=== PATIENT | female | born 1930 | race Caucasian/White ===

== ENCOUNTER 2017-12-14 16:18 | Emergency (ER) | payer OTHER, MEDICARE ==
[~2017-12-14] VITALS: Ht 172.7 cm; Wt 68.0 kg
[~2017-12-14 16:18] MED LIST: ALPRAZOLAM 0.0.25 M1 PO; ARICEPT 5 MG TAB5 MG PO; BENICAR; BONIVA150 MG PO; GLUCOPHAGE500 MG PO; HYDROCODONE-AP1 EAC6 PO; NOVOLOG100 UNIT/1 SUBQ; PREVISION; PROZAC 10 MG CA10 MG PO; PROZAC 20 MG20 M1 PO; SYNTHROID50 MCG PO; ZOCOR 20 MG TAB20 M1 PO
[2017-12-14] MEDS ORDERED: FLEXERIL PO (18:34)
[2017-12-14 19:10] VITALS: BP 147/63
== END 2017-12-14 19:12 | disposition home or self-care (01) ==
LOC: ER 16:18
DX: M54.9 Dorsalgia, unspecified (principal); E11.9 Type 2 diabetes mellitus without complications; E78.5 Hyperlipidemia, unspecified; F32.9 Major depressive disorder, single episode, unspecified; F41.9 Anxiety disorder, unspecified; F03.90 Unspecified dementia, unspecified severity, without behavioral disturbance, psychotic disturbance, mood disturbance, and anxiety; Z88.2 Allergy status to sulfonamides; Z88.1 Allergy status to other antibiotic agents; Z88.5 Allergy status to narcotic agent

== ENCOUNTER 2017-12-28 17:02 | Inpatient (IN) | payer OTHER, MEDICARE ==
[~2017-12-28] VITALS: Ht 172.7 cm; Wt 64.4 kg
--- NOTE | ~2017-12-28 | EEG ---
[facility] Jessica [place] [address] ELECTROENCEPHALOGRAM Name: MEISHA STILL Room #: 427-P [facility] IN M.R.#: [id number] Admission: 12/28/17 Attend Phys: Paty Mack Discharge: 01/04/18 Date of : [birth year] Report #: [id number] THIS REPORT FOR: //name// CC: Paty Carvajal DATE OF SERVICE: 01/03/2018 This patient is being evaluated for altered mental status. EEG was done by placing the electrodes by standard 10/20 system of electrode placement. Both referential and sequential montages were used for recording. Background activity in this patient's EEG is about 8 Hz and 30 microvolt. It is intermixed with theta range slowing on both sides. Photic stimulation is unremarkable. The patient became drowsy and went to sleep that was associated with bilateral slowing and vertex sharp waves. The patient's EEG has continued to be intermixed with theta range slowing on both sides. IMPRESSION: Moderately abnormal EEG because it is intermixed with theta range slowing on both sides. That is a nonspecific abnormality, which can occur with encephalopathy, effect of psychotropic medication, dementia, etc. Clinical correlation is recommended. Thank you very much for this referral. <ELECTRONICALLY SIGNED> By: Kevin Quintero MD 01/06/18 1552 1143 [id number] Kevin Quintero MD /marcelo
--- NOTE | ~2017-12-28 | HC ---
[facility] [address] CONSULTATION Name: MIESHA STILL Room #: 427-P [facility] IN M.R.#: [id number] Admission: 12/28/17 Attend Phys: Paty Bailey Discharge: 01/04/18 Date of : [birth year]/16/[birth year] Report #: [id number] THIS REPORT FOR: //name// CC: Paty Carvjaal DATE OF SERVICE: 01/03/2018 HISTORY OF PRESENT ILLNESS: This is an 87-year-old female patient who was evaluated by me to look for any neurological etiology for the patient's confusion. The patient does not provide any reliable history. She is confused and she does not have any significant memory. I talked to the patient's daughter after talking to the patient and it would appear this patient has significant memory problems and has been diagnosed with Alzheimer's. Her condition is she can recognize her 3 children, but does not know any months, days or years. She fluctuates to some extent and on some days, she may not be able to communicate with them. From all indication, it will appear that this patient has a severe dementia. It does intermittently become worse and looks like it is worse now. The history is further complicated by the fact that this patient also has anxiety and depression. She requires multiple medications for that and that makes her even worse. REVIEW OF SYSTEMS: Indicates that this patient has a history of repeated falls. She has a history of back pain. She does not take her medications, so family has to pay somebody to get these medications. She does have a prior history of urinary tract infection also. She also has a history of multiple other things including renal failure in the past. She does have a spine issues. She had elbow surgeries in the past. She had a kyphoplasty in the past. Daughter indicates that she has aortic aneurysm also. I carried out 14-point review of system and this was her relevant 14-point review of system. PAST MEDICAL HISTORY: Positive for dementia. FAMILY HISTORY: Negative for any epilepsy. SOCIAL HISTORY: She has a daughter who is pretty supportive and I talked to her in detail. PHYSICAL EXAMINATION: NEUROLOGIC: Indicates that she does not know what month it is. She does not know what hospital she is in. She does not know the president. Her speech looks okay. She is not oriented. Cranial nerve examination 2-12 is unremarkable. It would appear that she moves all 4 extremities and strength is symmetrical. I think her position sense is present. Her reflexes are diminished in generalized fashion. She did not understand the instruction for cerebellar sign. Her position sense is intact. Her tone is symmetrical. She [address] [address] CONSULTATION Name: MIESHA STILL [facility]: [facility] M.R[facility] [id number] Admission: 12/28/17 Attend Phys: Paty Bailey Discharge: 01/04/18 Date of : [birth year]/16/[birth year] Report #: [id number] could not cooperate with the fundus examination. GENERAL: She is a reasonably well-developed individual. HEENT: She does not have any dysmorphic features of eyes, ears and face. Her vision is adequate. Her hearing is adequate. NECK: She does not have any thyroid mass. CARDIAC: Looks unremarkable. RESPIRATORY: No respiratory difficulty was noticed. VITAL SIGNS: Her blood pressure is 166/99, respirations 22, pulse is 102, temperature is 97.5. LABORATORY DATA: Indicates an unremarkable TSH and vitamin B12. She did have a CT scan which showed extensive changes, but none of them is acute. IMPRESSION: 1. Severe dementia. 2. Multiple orthopedic and spine problems and evaluation and management. I will defer to you. 3. Anxiety and depression. RECOMMENDATIONS: 1. I discussed with the family, the dementia medication. They have already tried it and then that was discontinued and would like to leave it the way it is. 2. She does have a prior history of stroke also on the CT. Because of that, I will get a carotid Doppler done and a few other workup done tomorrow including lipid profile. She is already on aspirin and she can continue that. 3. I will strictly confine myself for evaluation for altered mental status and all the workup and evaluations including spine and musculoskeletal workup. I will defer to you or any other advertising sales consultant you want to consult. I saw the patient last night and saw the patient this morning. I think her mentation is better. I think this is her baseline what I get from the daughter, so I do not think we need to do much about the mentation except that she did have a stroke in the past and we may start on statin depending upon her lipid profile and other workup, but she may require some more workup of other systems including spine which I will defer to you or any other advertising sales consultant you want to consult. I will talk to you about this patient. <ELECTRONICALLY SIGNED> By: Kevin Quintero MD 01/06/18 1549 1143 [id number] Kevin Quintero MD /nt
--- NOTE | ~2017-12-28 | HC ---
[facility] [place] [address] CONSULTATION Name: MIESHA STILL Room #: 427-P [facility] IN M.R.#: [id number] Admission: 12/28/17 Attend Phys: Paty Bailey Discharge: 01/04/18 Date of : [birth year]/16/[birth year] Report #: [id number] THIS REPORT FOR: //name// CC: Paty Carvajal MD DATE OF SERVICE: 12/29/2017 REASON FOR CONSULTATION: Possible T12 fracture and sacral fracture. HISTORY OF PRESENT ILLNESS: The patient is an 87-year-old female with a history of spinal stenosis, frequent falls, T11 compression fracture, status post 01/2015 and apparently was diagnosed with a T12 compression fracture on 12/04/2017 that was treated conservatively. She returned to her apartment at [facility]. Her daughter reports patient was doing well until a few days ago when she has had significantly more pain and difficulty ambulating. The patient's daughter reports she has been staying with her because the facility does not offer assistance and she has been assisting her getting to the bathroom. She saw her primary care doctor this week and apparently had a DEXA scan, which showed worsening of osteoporosis. She was unable to ambulate or get off the couch. The patient has difficulty localizing her pain. She reports that it feels low in her pelvis/back area with no radiation of pain down her legs. REVIEW OF SYSTEMS: NEUROLOGIC: Denies numbness or tingling. MUSCULOSKELETAL: See HPI. PAST MEDICAL HISTORY: Obtained partially from the patient's medical record as well as from the patient's family. History of urinary tract infections and weakness, diabetes, dementia, anxiety, depression, dyslipidemia, hypothyroidism, debility. She has an ascending aortic arch aneurysm. PAST SURGICAL HISTORY: Elbow surgery, right ankle surgery, T11 kyphoplasty. SOCIAL HISTORY: Prior to this new onset of pain, she ambulated with a walker, lives at [facility], has a daughter at her bedside. Denies smoking or drinking alcohol. ALLERGIES: REVIEWED FROM THE PATIENT'S MEDICAL RECORD WHICH INCLUDES CEPHALOSPORIN, CIPROFLOXACIN, CEPHALEXIN, MANNITOL, SULFA, ZOLEDRONIC ACID INJECTION FROM RECLAST. LABORATORY STUDIES: Done on 12/29/2017 show white blood cell count 6.7, hemoglobin 11.4, hematocrit 33, platelet count 216. Chemistry is grossly [address] [address] CONSULTATION Name: MIESHA STILL Room #: 427-P [facility] IN .R.#: [id number] Admission: 12/28/17 Attend Phys: Paty Bailey Discharge: 01/04/18 Date of : 12/16/[birth year] Report #: [id number] normal. PHYSICAL EXAMINATION: GENERAL: The patient is alert. She converses well, although it has difficulty localizing her symptoms. Her daughter is at her bedside. VITAL SIGNS: Most recent vital signs show temperature of 36.4, pulse rate 61, respiration rate 18, blood pressure 147/63, and pulse oximetry is 97% on room air. EXTREMITIES: Examination of her bilateral upper extremities: She has diffuse areas of ecchymosis in the skin most likely due to her age. Her skin is otherwise clean, dry and intact. She is able to make good fist. Extension of wrist, forearm, elbow and shoulder motion are functional without pain. There is no tenderness to palpation of the bilateral sternum or clavicles, bilateral shoulders, arms, elbows, forearms, wrists and hands. Bilateral lower extremity exam: Sensation is intact to light touch throughout. She has brisk capillary refill. The skin is clean, dry and intact. EHL, FHL, dorsiflexion and plantar flexion are intact. She has no tenderness to palpation throughout the bilateral thighs, knees, ankles, legs or feet. There is no pain with bilateral hip, knee, ankle or foot motion. Examination of her spine: There is no tenderness to palpation throughout her thoracic or lumbar spine. There is no specific tenderness through her sacrum or greater trochanter on the right. Straight leg raise does cause pain in the pelvis and posterior right aspect of her buttock; however, there is no radiation of pain past the mid-thigh. RADIOGRAPHS: CT scan of the lumbar spine shows the kyphoplasty at T11, possibly some superior endplate changes on the T12. No definite fracture is noted. CT of the pelvis shows anterior fracture of the right sacral ala that appears to be nondisplaced and consistent with an insufficiency fracture. IMPRESSION AND PLAN: Pain. I am having difficulty localizing the pain. It does not appear to be related to a T12 fracture. Most likely her pain is secondary to the insufficiency sacral fracture. Although, some of her pain may be related to spinal stenosis, at this point, I would recommend PT and OT to ambulate the patient as much as possible. I strongly encouraged sitting upright in bed to avoid pulmonary complications and I encouraged her to ambulate and work with therapy in order to decrease her loss of muscle mass during this period where she is not ambulating normally. My partner, Dr. Bry Godinez, will follow this weekend from [facility], [facility]. If her exam localizes more towards the spine that may be related to her spinal stenosis, may consider a consult with pain management anesthesia for evaluation [address] [place] [address] CONSULTATION Name: CATHLEENSTACIEMIESHA HUMAIRA Room #: 427-P [facility] IN M.R.#: [id number] Admission: 12/28/17 Attend Phys: Paty Bailey Discharge: 01/04/18 Date of : [birth year]/16/[birth year] Report #: [id number] of her spine, possibly an epidural steroid injection. Questions were encouraged and answered to the best of my ability. <ELECTRONICALLY SIGNED> By: An Manzano MD 01/18/18 1656 1233 [id number] An Manzano MD /nt
--- NOTE | ~2017-12-28 | 2DMMODE ---
[facility] [address] [place] [address] 2 D/M-MODE ECHOCARDIOGRAM Name: CHEKOMIESHA GERARDO Room #: 427-P [facility] IN M.R.#: [id number] Admission: 12/28/17 Attend Phys: Paty Guadalupe Discharge: Date of : [birth year]/16/[birth year] Date of Service: 01/04/18 0934 Report #: [id number] THIS REPORT FOR: //name// APPROVED REPORT Study performed: 01/04/2018 08:06:40 EXAM: Comprehensive 2D, Doppler, and color-flow Echocardiogram Patient Location: Bedside Room #: 427 Status: routine BSA: 1.75 HR: 92 bpm BP: 156/78 mmHg Rhythm: NSR Other Information Study Quality: Fair Technically limited study due to uncooperative patient. Indications CVA/TIA Hx: DM, HLD, Dilated Ao Arch Echo Enhancing Agent Indication: Rule out Shunt Agent(s) / Amount(s) Used: Agitated Saline 7 cc 2D Dimensions LVEF(%): 54.91 (>50%) IVSd: 14.67 (7-11mm) LVOT Diam: 20.21 (18-24mm) LVDd: 38.34 mm PWd: 13.56 (7-11mm) Ascending Ao: 41.89 (22-36mm) LVDs: 27.60 (25-40mm) Aortic Root: 31.98 mm Ford's LVEF: 54.91 % Pulmonary Valve PV Peak Wallace.: 1.20 m/s PV Peak Gr.: 5.80 mmHg Tricuspid Valve TR Peak Wallace.: 2.96 m/s TR Peak Gr.: 35.13 mmHg [facility] [address] [place] [address] 2 D/M-MODE ECHOCARDIOGRAM Name: MIESHA STILL Room #: 427-P [facility] IN [facility].#: [id number] Admission: 12/28/17 Attend Phys: Paty Guadalupe Discharge: Date of : [birth year]/16/[birth year] Date of Service: 01/04/18 0934 Report #: [id number] Left Ventricle The left ventricle is normal size. There is normal LV segmental wall motion. Mild concentric left ventricular hypertrophy. The left ventricular systolic function is normal. The left ventricular ejection fraction is within the normal range. LVEF is 55-60%. Mild diastolic dysfunction is present (impaired relaxation pattern). Right Ventricle The right ventricle is normal size. The right ventricular systolic function is normal. Atria Left atrium is mildly dilated. Interatrial septum is intact without evidence of ASD or PFO. No shunting by contrast bubble injection The right atrium size is normal. Aortic Valve The aortic valve is sclerotic. No aortic regurgitation is present. There is no aortic valvular stenosis. Mitral Valve The mitral valve chordae are thickened and calcified. There is no mitral valve regurgitation noted. No evidence of mitral valve stenosis. Tricuspid Valve The tricuspid valve is normal in structure. Mild tricuspid regurgitation. Pulmonic Valve The pulmonary valve is normal in structure. There is no pulmonic valvular regurgitation. Great Vessels The aortic root is normal in size. Ascending aorta is dilated at 4.2 cm. IVC is not well visualized. Pericardium There is no pericardial effusion. <Conclusion> The left ventricular systolic function is normal. There is normal LV segmental wall motion. LVEF 55-60%. Left atrium is mildly dilated. Interatrial septum is intact without evidence of ASD or PFO. No [facility] [place] [address] 2 D/M-MODE ECHOCARDIOGRAM Name: MIESHA STILL Room #: 427-P [facility] IN M.R.#: [id number] Admission: 12/28/17 Attend Phys: Paty Guadalupe Discharge: Date of : [birth year]/16/[birth year] Date of Service: 01/04/18933 Report #: [id number] shunting by contrast bubble injection The aortic valve is sclerotic. No aortic regurgitation is present. The mitral valve chordae are thickened and calcified. No mitral valve regurgitation noted. Ascending aorta is dilated at 4.2 cm. There is no pericardial effusion. <ELECTRONICALLY SIGNED> By: Keegan Tejeda MD, FACC 01/04/1834 3 0934 Keegan Tejeda MD, FACC /INF
[~2017-12-28 17:02] MED LIST changes: +FLEXERIL PO
[2017-12-28 17:17] VITALS: BP 94/71
[2017-12-28] MEDS ORDERED: CELEXA20 MG PO (17:42)
[2017-12-28] MEDS ORDERED: CALCITONIN-SAL3.7 ML NASAL (17:43)
[2017-12-28] MEDS ORDERED: LO-DOSE ASPIRIN81 M1 PO (17:43)
[2017-12-28] MEDS ORDERED: TYLENOL EXTRA500 MG PO (17:44)
[2017-12-28] MEDS ORDERED: PRESERVISION A1 EACH PO (17:44)
[2017-12-28 18:03] LABS: ABSOLUTE NEUTROPHILS 8.7 thou/uL (1.4-8.2); BASOPHILS 0.2 % (0.0-2.0); EOSINOPHILS 0.3 % (0.0-3.0); HEMATOCRIT 32.7 % (37.0-47.0); HEMOGLOBIN 11.4 gm/dL (12.0-15.0); LYMPHOCYTES 7.2 % (24.0-44.0); MCV 85.6 fL (80.0-100.0); PLATELET COUNT 230 thou/uL (150-400); POLYS 84.3 % (36.0-66.0); RBC 3.82 mil/uL (4.20-5.00); WBC 10.3 thou/uL (4.0-11.0)
[2017-12-28 18:07] LABS: CALCIUM 9.3 mg/dL (8.5-10.1); CREATININE 0.9 mg/dL (0.6-1.0)
[2017-12-28 18:13] LABS: ALBUMIN 3.1 g/dL (3.4-5.0); TOTAL BILIRUBIN 0.8 mg/dL (<0.1-1.0); TOTAL PROTEIN 7.3 g/dL (6.4-8.2)
[2017-12-28 19:06] LABS: URINE BILIRUBIN NEGATIVE (Negative); URINE BLOOD TRACE (Negative); URINE COLOR YELLOW; URINE GLUCOSE-RANDOM* NEGATIVE (Negative); URINE KETONES 1+ (Negative); URINE PROTEIN (DIPSTICK) TRACE (Negative); URINE SPECIFIC GRAVITY <= 1.005 (1.005-1.035)
[2017-12-28 19:07] LABS: URINE LEUKOCYTES-REFLEX 3+ (Negative); URINE NITRITE-REFLEX POSITIVE (Negative)
[2017-12-28 19:08] LABS: URINE CLARITY SL HAZY
[2017-12-28 19:16] LABS: BACTERIA-REFLEX >30 Many /HPF (None Seen); CASTS None Seen /LPF (None Seen); CRYSTALS None Seen /LPF (None Seen); SQUAMOUS 0-3 Few /LPF (0-3); URINE RBC 3-10 Few /HPF (0-2); URINE WBC-REFLEX >25 Many /HPF (0-5)
[2017-12-28 20:48] VITALS: BP 164/74
[2017-12-28 22:11] LABS: TSH 3.677 uIU/mL (0.358-3.740)
[2017-12-28 23:43] VITALS: BP 142/64
[2017-12-29 03:46] VITALS: BP 156/72
[2017-12-29 05:54] LABS: HEMOGLOBIN 11.4 gm/dL (12.0-15.0); MCH 29.8 pg (26.0-34.0); MCHC 34.6 g/dL (28.0-37.0); MCV 86.2 fL (80.0-100.0); RBC 3.83 mil/uL (4.20-5.00); RDW 13.9 % (10.5-14.5); WBC 6.7 thou/uL (4.0-11.0)
[2017-12-29 06:03] LABS: CALCIUM 8.9 mg/dL (8.5-10.1); CREATININE 0.7 mg/dL (0.6-1.0); POTASSIUM 3.8 mmol/L (3.5-5.1)
[2017-12-29 07:07] VITALS: BP 147/63
[2017-12-29 15:05] VITALS: BP 116/91
[2017-12-29 19:07] VITALS: BP 166/84
[2017-12-30 00:37] VITALS: BP 175/73
[2017-12-30 03:36] VITALS: BP 156/70
[2017-12-30 08:11] VITALS: BP 177/85
[2017-12-30 20:36] VITALS: BP 178/84
[2017-12-31 03:37] VITALS: BP 171/81
[2017-12-31 08:00] VITALS: BP 165/89
[2017-12-31 15:19] VITALS: BP 91/50
[2017-12-31 20:00] VITALS: BP 131/74
[2018-01-01 04:30] VITALS: BP 133/60
[2018-01-01 07:10] VITALS: BP 130/62
[2018-01-01 15:20] VITALS: BP 144/74
[2018-01-01 20:05] VITALS: BP 156/79
[2018-01-02 03:00] VITALS: BP 169/84
[2018-01-02 07:10] VITALS: BP 155/77
[2018-01-02 15:23] VITALS: BP 136/73; BP 93/61
[2018-01-02 15:43] VITALS: BP 136/70
[2018-01-02 19:10] VITALS: BP 171/89
[2018-01-03 03:35] VITALS: BP 163/94
[2018-01-03 06:11] LABS: ABSOLUTE NEUTROPHILS 7.5 thou/uL (1.4-8.2); BASOPHILS 0.2 % (0.0-2.0); EOSINOPHILS 2.3 % (0.0-3.0); HEMATOCRIT 35.7 % (37.0-47.0); HEMOGLOBIN 12.1 gm/dL (12.0-15.0); LYMPHOCYTES 10.5 % (24.0-44.0); MCH 29.2 pg (26.0-34.0); MCHC 34.1 g/dL (28.0-37.0); MCV 85.7 fL (80.0-100.0); MONOCYTES 6.5 % (1.0-8.0); PLATELET COUNT 291 thou/uL (150-400); POLYS 80.5 % (36.0-66.0); RBC 4.16 mil/uL (4.20-5.00); WBC 9.4 thou/uL (4.0-11.0)
[2018-01-03 06:31] LABS: CALCIUM 9.6 mg/dL (8.5-10.1); CREATININE 0.7 mg/dL (0.6-1.0); POTASSIUM 3.3 mmol/L (3.5-5.1)
[2018-01-03 06:54] VITALS: BP 166/99
[2018-01-03 12:29] LABS: CHOLESTEROL 167 mg/dL (<200); HDL CHOLESTEROL 71 mg/dL (>40); LDL CHOLESTEROL 74 mg/dL (<100); TC:HDL 2.4 Ratio (Not establshd); TRIGLYCERIDE 110 mg/dL (<150); VLDL 22 mg/dL (<40)
[2018-01-03 20:00] VITALS: BP 161/91
[2018-01-04] VITALS: BP 169/86
[2018-01-04 04:00] VITALS: BP 156/78
[2018-01-04 06:45] LABS: ABSOLUTE NEUTROPHILS 7.2 thou/uL (1.4-8.2); BASOPHILS 0.3 % (0.0-2.0); EOSINOPHILS 2.5 % (0.0-3.0); HEMATOCRIT 34.1 % (37.0-47.0); HEMOGLOBIN 11.6 gm/dL (12.0-15.0); LYMPHOCYTES 16.9 % (24.0-44.0); MCH 29.4 pg (26.0-34.0); MCHC 34.2 g/dL (28.0-37.0); MCV 86.1 fL (80.0-100.0); PLATELET COUNT 305 thou/uL (150-400); POLYS 73.3 % (36.0-66.0); RBC 3.96 mil/uL (4.20-5.00); RDW 14.3 % (10.5-14.5); WBC 9.8 thou/uL (4.0-11.0)
[2018-01-04 06:52] LABS: CALCIUM 9.4 mg/dL (8.5-10.1); CREATININE 0.7 mg/dL (0.6-1.0); POTASSIUM 3.4 mmol/L (3.5-5.1)
[2018-01-04 07:15] VITALS: BP 148/75
[2018-01-04] MEDS ORDERED: MELATONIN5 M1 PO (14:31)
[2018-01-04] MEDS ORDERED: LO-DOSE ASPIRIN81 M1 PO (14:31)
[2018-01-04] MEDS ORDERED: LIPITOR 20 MG T20 M1 PO (15:03)
[2018-01-04 16:21] VITALS: BP 162/75
== END 2018-01-04 20:24 | DRG 871 ==
LOC: ER 17:02 → EROBS 19:42 → 4E 19:42
PROVIDERS: Emergency Medicine; Hospitalist; Nurse Practitioner Family; Psychiatry & Neurology Neuromuscular Medicine
DX: A41.9 Sepsis, unspecified organism (principal); G92 Toxic encephalopathy; N39.0 Urinary tract infection, site not specified; M80.08XA Age-related osteoporosis with current pathological fracture, vertebra(e), initial encounter for fracture; E11.9 Type 2 diabetes mellitus without complications; F03.90 Unspecified dementia, unspecified severity, without behavioral disturbance, psychotic disturbance, mood disturbance, and anxiety; F41.9 Anxiety disorder, unspecified; F32.9 Major depressive disorder, single episode, unspecified; E78.5 Hyperlipidemia, unspecified; E03.9 Hypothyroidism, unspecified; M48.00 Spinal stenosis, site unspecified; I71.2 Thoracic aortic aneurysm, without rupture; Z66 Do not resuscitate; B96.20 Unspecified Escherichia coli [E. coli] as the cause of diseases classified elsewhere; M19.90 Unspecified osteoarthritis, unspecified site; Z79.899 Other long term (current) drug therapy; Z88.1 Allergy status to other antibiotic agents; Z88.2 Allergy status to sulfonamides; Z88.8 Allergy status to other drugs, medicaments and biological substances; Z86.73 Personal history of transient ischemic attack (TIA), and cerebral infarction without residual deficits
CPT/HCPCS: 10084

== ENCOUNTER 2018-03-14 13:37 | Inpatient (IN) | payer OTHER, MEDICARE ==
[~2018-03-14] VITALS: Ht 172.7 cm; Wt 72.6 kg
--- NOTE | ~2018-03-14 | HC ---
[facility] [place] [address] CONSULTATION Name: MIESHA STILL Room #: 404-P [facility] IN M.R.#: [id number] Admission: 03/14/18 Attend Phys: Maximo Adams MD Discharge: Date of : [birth year]/16/[birth year] Report #: [id number] THIS REPORT FOR: //name// CC: Martin Adams DATE OF SERVICE: 03/14/2018 REASON FOR CONSULTATION: Left hip fracture. HISTORY OF PRESENT ILLNESS: The patient is an 87-year-old female who fell at her assisted living center and was found to have a left hip fracture. She was brought to the Emergency Room and had been admitted for definitive fixation. PAST MEDICAL HISTORY: Significant for back pain, dementia, lacunar stroke, lumbar compression fracture, sacral fracture, thoracic compression fracture, toxic metabolic encephalopathy, urinary tract infection, weakness, depression, dyslipidemia and ascending aortic arch aneurysm. PAST SURGICAL HISTORY: As above. MEDICATIONS: Current medications have been reviewed and are on the chart. SOCIAL HISTORY: She lives in an assisted living level at [place]. She does not smoke. PHYSICAL EXAMINATION: GENERAL: This is a frail-appearing female, in no acute distress. She is alert, somewhat confused. EXTREMITIES: Examination of left lower extremity shows to hold her hip abducted and externally rotated. NEUROLOGIC: She is neurologically intact distally. SKIN: Intact. IMAGING DATA: X-ray examination, AP pelvis and AP and lateral left hip, shows her to have a displaced 2-part intertrochanteric hip fracture. ASSESSMENT: Displaced 2-part intertrochanteric hip fracture. PLAN: Discussed with her and her daughter treatment for this. We will plan to treat this with an IM nail. She is on for surgery tomorrow morning at 10:30 a.m. She will be n.p.o. after midnight. Risks, benefits, alternatives and complications were discussed. They are understanding and wish to proceed. [address] [address] CONSULTATION Name: MIESHA STILL Room #: 404-P [facility] IN ..#: [id number] Admission: 03/14/18 Attend Phys: Maximo Adams MD Discharge: Date of : [birth year]/16/[birth year] Report #: [id number] Thank you for allowing us to participate in the care of the patient. <ELECTRONICALLY SIGNED> By: Bry Godinez MD 03/17/18 0908 1616 2311 Bry Godinez MD /nt
--- NOTE | ~2018-03-14 | EKG ---
[address] [address] ELECTROCARDIOGRAM REPORT Name: MIESHA STILL Room #: 404-P [facility] IN ..#: [id number] Admission: 03/14/18 Attend Phys: Maxiom Adams MD Discharge: Date of : [birth year]/16/[birth year] Report #: [id number] THIS REPORT FOR: //name// [facility] ED Test Date: 2018-03-14 Test Time: 14:50:52 Pat Name: MIESHA STILL Department: Room: Gender: F Cattle [place]: 11 : 1930 Requested By: Lucrecia Merino Order Number: [id number] MD: Chris Baer Measurements Intervals [place] Rate: 78 P: 133 RI: 248 QRS: -41 QRSD: 103 T: 55 QT: 405 QTc: 462 Interpretive Statements Sinus rhythm Prolonged RI interval Left axis deviation Compared to ECG 01/24/2013 08:19:59 First degree AV block now present Left-axis deviation now present T-wave abnormality no longer present Electronically Signed On 03-14-2018 22:28:45 CDT by Chris Baer [email or web address] <ELECTRONICALLY SIGNED> By: Chris Baer MD 03/14/18 2228 1450 1450 Chris Baer MD /EPI
--- NOTE | ~2018-03-14 | O ---
[facility] [place] [place] [address] OPERATIVE REPORT Name: MIESHA STILL Room #: 404-P [facility] IN M.R.#: [id number] Admission: 03/14/18 Attend Phys: Maximo Adams MD Discharge: Date of : [birth year]/16/[birth year] Report #: [id number] THIS REPORT FOR: //name// CC: Martin Adams DATE OF SERVICE: 03/15/2018 PREOPERATIVE DIAGNOSIS: Left comminuted intertrochanteric hip fracture. POSTOPERATIVE DIAGNOSIS: Left comminuted intertrochanteric hip fracture. PROCEDURE: Treatment of left intertrochanteric hip fracture with IM nail. SURGEON: Bry Godinez MD ENDING MACHINE OPERATOR: Sarita Chapman PA-C INDICATIONS FOR ASSISTANCE: Throughout the case, extensive retraction and manipulation was required of the hip. This was afforded to me by my assistant import manager. ANESTHESIA: LMA. IMPLANTS: Saab and Nephew size 10 short InterTan nail with size 100/90 lag screw and compression screw and a size 27.5 distal locking screw. ESTIMATED BLOOD LOSS: 50 mL. COMPLICATIONS: None. SPECIMENS: None. CONDITION UPON LEAVING THE OPERATING ROOM: Stable. INDICATION FOR PROCEDURE: The patient is an 87-year-old female who fell and sustained a left comminuted intertrochanteric hip fracture. After discussion with she and her family, they elected for treatment with an IM nail. DESCRIPTION OF PROCEDURE: Risks, benefits, alternatives, complications were discussed in detail with the patient including but not limited to risk of anesthesia; risk of damage to nerves, arteries, blood vessels; risk for infection; bleeding; risk for malunion, nonunion; and need for reoperation. Informed consent was obtained from the patient's daughter. The left hip was appropriately marked in the preoperative holding area. IV clindamycin was given for preoperative antibiotics. She was brought to the operating room and placed in the supine position on the operating room table. LMA anesthesia was induced [facility] [address] [place] [address] OPERATIVE REPORT Name: MIESHA STILL Room #: 404-P [facility] IN M.R.#: [id number] Admission: 03/14/18 Attend Phys: Maximo Adams MD Discharge: Date of : [birth year]/16/[birth year] Report #: [id number] without complication. She was transferred to the [facility]. Left lower extremity was placed in traction. Right lower extremity was scissored. Timeout was performed, properly identifying the patient, procedure as well as the instrumentation and implants. All in the operating room were in agreement. Reduction maneuver of the left hip was performed consisting of traction, internal rotation and adduction. Fluoroscopic imaging was brought in to verify adequate reduction of the fracture. Left hip was then prepped and draped in normal sterile fashion. An incision proximal to the tip of the greater trochanter was made with 10 blade through the skin and fascia. Threaded tip guidewire was taken and placed on the tip of the greater trochanter and taken down to the lesser trochanter under AP and lateral imaging. There was noted to be significant comminution of the lateral cortex of the femur. After verifying acceptable entry portal, the entry portal reamer was used to ream the entry portal and a short/10 InterTan nail was placed down across the fracture site. This was seated to the appropriate level and the guide pin for the lag screw was placed up into the femoral head and verified to be in good position under AP and lateral imaging. This was measured and found to be a size 100. This was then reamed and a size 100 lag screw was placed, size 95 compression screw was placed and 12 mm of compression was gained across the fracture site. This was then locked distally in the dynamic slot using a 27.5 distal locking screw. After this, final fluoroscopic images were taken to verify adequate fracture reduction and placement of hardware. The wounds were thoroughly irrigated with normal saline and closed with 2-0 Vicryl and skin rebekah. Soft dressing of Adaptic, 4 x 4s, ABD, Medipore tape were applied. The patient tolerated this procedure well and went to the recovery room under the care of Anesthesia postoperatively. <ELECTRONICALLY SIGNED> By: Bry Godinez MD 03/17/18 0908 1331 1409 Bry Godinez MD /nt
--- NOTE | ~2018-03-14 | EKG ---
[address] [address] ELECTROCARDIOGRAM REPORT Name: MIESHA STILL Room #: 404- ADM IN M.R.#: [id number] Admission: 03/14/18 Attend Phys: Maximo Adams MD Discharge: Date of : [birth year] Report #: [id number] THIS REPORT FOR: //name// [facility] Test Date: 2018-03-15 Test Time: 14:07:55 Pat Name: MIESHA STILL Department: Room: 404 Gender: F Electrical Laboratory Technician: Misty MOORE : 1930 Requested By: Maximo Adams Order Number: [id number] MD: Keegan Tejeda Measurements Intervals [place] Rate: 70 P: 83 MN: 227 QRS: -32 QRSD: 101 T: 64 QT: 438 QTc: 473 Interpretive Statements Sinus rhythm Prolonged MN interval Left axis deviation Borderline T wave abnormalities Compared to ECG 03/14/2018 14:50:52 No significant change was found Electronically Signed On 03-15-2018 16:42:54 CDT by Keegan Tejeda [email or web address] <ELECTRONICALLY SIGNED> By: Keegan Tejeda MD, [facility] 03/15/18 1642 [id number] Keegan Tejeda MD, [facility] /EPI
[~2018-03-14 13:37] MED LIST changes: +CALCITONIN-SAL3.7 ML NASAL; +CELEXA20 MG PO; +LIPITOR 20 MG T20 M1 PO; +LO-DOSE ASPIRIN81 M1 PO; +MELATONIN5 M1 PO; +PRESERVISION A1 EACH PO; +TYLENOL EXTRA500 MG PO
[2018-03-14 13:38] VITALS: BP 159/79
[2018-03-14] MEDS ORDERED: LISINOPRIL2.5 MG PO (14:14)
[2018-03-14] MEDS ORDERED: COLACE100 MG PO (14:14)
[2018-03-14] MEDS ORDERED: REMERON15 MG PO (14:15)
[2018-03-14 14:52] LABS: ABSOLUTE NEUTROPHILS 3.3 thou/uL (1.4-8.2); BASOPHILS 0.5 % (0.0-2.0); EOSINOPHILS 2.7 % (0.0-3.0); HEMATOCRIT 33.2 % (37.0-47.0); HEMOGLOBIN 11.2 gm/dL (12.0-15.0); LYMPHOCYTES 33.6 % (24.0-44.0); MCH 30.5 pg (26.0-34.0); MCHC 33.7 g/dL (28.0-37.0); MCV 90.7 fL (80.0-100.0); MONOCYTES 8.2 % (1.0-8.0); PLATELET COUNT 207 thou/uL (150-400); RBC 3.66 mil/uL (4.20-5.00); RDW 14.7 % (10.5-14.5); WBC 6.1 thou/uL (4.0-11.0)
[2018-03-14 14:56] LABS: CALCIUM 9.1 mg/dL (8.5-10.1); POTASSIUM 4.2 mmol/L (3.5-5.1)
[2018-03-14 15:02] LABS: ALBUMIN 3.3 g/dL (3.4-5.0); TOTAL BILIRUBIN 0.4 mg/dL (<0.1-1.0); TOTAL PROTEIN 7.3 g/dL (6.4-8.2)
[2018-03-14 15:08] LABS: APTT 25.2 Seconds (24.5-32.8); PROTIME 10.7 Seconds (9.3-11.4)
[2018-03-14 17:35] VITALS: BP 116/58
[2018-03-14 18:22] VITALS: BP 105/65
[2018-03-14 18:35] LABS: URINE BILIRUBIN NEGATIVE (Negative); URINE BLOOD NEGATIVE (Negative); URINE CLARITY CLEAR; URINE COLOR YELLOW; URINE GLUCOSE-RANDOM* NEGATIVE (Negative); URINE KETONES NEGATIVE (Negative); URINE PROTEIN (DIPSTICK) NEGATIVE (Negative); URINE SPECIFIC GRAVITY 1.015 (1.005-1.035); URINE UROBILINOGEN 0.2 E.U./dl (0.2-1.0)
[2018-03-14 18:38] LABS: URINE LEUKOCYTES-REFLEX 1+ (Negative); URINE NITRITE-REFLEX POSITIVE (Negative)
[2018-03-14 18:46] LABS: BACTERIA-REFLEX >30 Many /HPF (None Seen); CASTS None Seen /LPF (None Seen); CRYSTALS None Seen /LPF (None Seen); SQUAMOUS 0-3 Few /LPF (0-3); URINE WBC-REFLEX >25 Many /HPF (0-5)
[2018-03-14 18:47] LABS: URINE RBC 0-2 Rare /HPF (0-2)
[2018-03-14 18:48] VITALS: BP 119/51
[2018-03-14 20:15] VITALS: BP 128/64
[2018-03-15] VITALS (12 sets, daily range): BP systolic 69–138; BP diastolic 35–78
[2018-03-15 05:29] LABS: ABSOLUTE NEUTROPHILS 7.4 thou/uL (1.4-8.2); BASOPHILS 0.1 % (0.0-2.0); EOSINOPHILS 0.1 % (0.0-3.0); HEMATOCRIT 23.8 % (37.0-47.0); LYMPHOCYTES 11.4 % (24.0-44.0); MCH 30.5 pg (26.0-34.0); MCHC 33.7 g/dL (28.0-37.0); MCV 90.3 fL (80.0-100.0); MONOCYTES 7.1 % (1.0-8.0); PLATELET COUNT 182 thou/uL (150-400); POLYS 81.3 % (36.0-66.0); RBC 2.64 mil/uL (4.20-5.00); RDW 14.6 % (10.5-14.5); WBC 9.1 thou/uL (4.0-11.0)
[2018-03-15 05:37] LABS: CALCIUM 8.8 mg/dL (8.5-10.1); CREATININE 0.7 mg/dL (0.6-1.0); MAGNESIUM 1.9 mg/dL (1.8-2.4); POTASSIUM 4.6 mmol/L (3.5-5.1)
[2018-03-15 12:20] LABS: HEMOGLOBIN 6.8 gm/dL (12.0-15.0)
[2018-03-15 12:21] LABS: HEMATOCRIT 20.1 % (37.0-47.0); MCH 30.5 pg (26.0-34.0); MCHC 33.8 g/dL (28.0-37.0); MCV 90.2 fL (80.0-100.0); RBC 2.23 mil/uL (4.20-5.00); RDW 14.6 % (10.5-14.5); WBC 8.7 thou/uL (4.0-11.0)
[2018-03-15 14:11] LABS: BE(vivo) -2.3 mmol/L (-2 to +3); HCO3 21.5 mmol/L (22.0-26.0); PCO2 31.6 mmHg (35.0-45.0); PO2 328.2 mmHg (80.0-100.0); sO2 99.8 % (92.0-98.0)
[2018-03-15 14:27] LABS: MCH 30.1 pg (26.0-34.0); MCHC 33.1 g/dL (28.0-37.0); RBC 1.85 mil/uL (4.20-5.00); RDW 14.7 % (10.5-14.5); WBC 11.4 thou/uL (4.0-11.0)
[2018-03-15 14:29] LABS: HEMOGLOBIN 5.6 gm/dL (12.0-15.0)
[2018-03-15 14:30] LABS: HEMATOCRIT 16.8 % (37.0-47.0)
[2018-03-15 14:41] LABS: ALBUMIN 2.2 g/dL (3.4-5.0); ANION GAP 5 mmol/L (7-16); BUN 20 mg/dL (7-18); CALCIUM 7.7 mg/dL (8.5-10.1); CHLORIDE 107 mmol/L (98-107); CO2 26 mmol/L (21-32); CREATININE 0.9 mg/dL (0.6-1.0); GLUCOSE 211 mg/dL (74-106); POTASSIUM 4.4 mmol/L (3.5-5.1); SGOT 20 U/L (15-37); SGPT 18 U/L (30-65); SODIUM 138 mmol/L (136-145); TOTAL BILIRUBIN 0.5 mg/dL (<0.1-1.0); TOTAL PROTEIN 4.9 g/dL (6.4-8.2); TROPONIN-I < 0.04 ng/mL (<0.06)
[2018-03-16 00:20] LABS: HEMATOCRIT 29.4 % (37.0-47.0)
[2018-03-16 00:23] LABS: HEMOGLOBIN 9.7 gm/dL (12.0-15.0)
[2018-03-16 04:00] VITALS: BP 123/57
[2018-03-16 06:01] LABS: HEMATOCRIT 25.6 % (37.0-47.0); HEMOGLOBIN 8.9 gm/dL (12.0-15.0); MCH 31.6 pg (26.0-34.0); MCHC 34.6 g/dL (28.0-37.0); MCV 91.3 fL (80.0-100.0); RBC 2.8 mil/uL (4.20-5.00); RDW 14.5 % (10.5-14.5); WBC 10.9 thou/uL (4.0-11.0)
[2018-03-16 08:55] VITALS: BP 120/59
[2018-03-16 09:52] LABS: HEMATOCRIT 24.2 % (37.0-47.0); HEMOGLOBIN 8.3 gm/dL (12.0-15.0); MCHC 34.3 g/dL (28.0-37.0); MCV 90.2 fL (80.0-100.0); RBC 2.68 mil/uL (4.20-5.00); RDW 14.5 % (10.5-14.5); WBC 10.7 thou/uL (4.0-11.0)
[2018-03-16 14:32] LABS: HEMATOCRIT 22.9 % (37.0-47.0); HEMOGLOBIN 7.8 gm/dL (12.0-15.0)
[2018-03-16 17:24] VITALS: BP 119/51
[2018-03-16 19:15] VITALS: BP 127/55
[2018-03-17] VITALS (10 sets, daily range): BP systolic 107–145; BP diastolic 44–74
[2018-03-17 05:42] LABS: HEMOGLOBIN 6.8 gm/dL (12.0-15.0); MCH 31.3 pg (26.0-34.0); MCHC 34.5 g/dL (28.0-37.0); MCV 90.7 fL (80.0-100.0); RBC 2.16 mil/uL (4.20-5.00); RDW 14.3 % (10.5-14.5); WBC 7.5 thou/uL (4.0-11.0)
[2018-03-17 05:51] LABS: CALCIUM 7.8 mg/dL (8.5-10.1); CREATININE 0.7 mg/dL (0.6-1.0); MAGNESIUM 1.8 mg/dL (1.8-2.4); POTASSIUM 4.6 mmol/L (3.5-5.1)
[2018-03-17 05:54] LABS: HEMATOCRIT 19.6 % (37.0-47.0)
[2018-03-17 16:16] LABS: HEMATOCRIT 25.5 % (37.0-47.0); HEMOGLOBIN 8.6 gm/dL (12.0-15.0)
[2018-03-18 04:10] VITALS: BP 145/69
[2018-03-18 07:32] LABS: HEMATOCRIT 24.2 % (37.0-47.0); HEMOGLOBIN 8.2 gm/dL (12.0-15.0); MCH 30.6 pg (26.0-34.0); MCHC 33.9 g/dL (28.0-37.0); MCV 90.2 fL (80.0-100.0); RBC 2.68 mil/uL (4.20-5.00); WBC 6.6 thou/uL (4.0-11.0)
[2018-03-18 07:44] LABS: CALCIUM 8.3 mg/dL (8.5-10.1); CREATININE 0.6 mg/dL (0.6-1.0); MAGNESIUM 1.8 mg/dL (1.8-2.4); POTASSIUM 4.1 mmol/L (3.5-5.1)
[2018-03-18 08:20] VITALS: BP 133/57
[2018-03-18 16:12] VITALS: BP 140/51
[2018-03-18 19:30] VITALS: BP 144/58
[2018-03-19 04:15] VITALS: BP 149/71
[2018-03-19 06:16] LABS: HEMATOCRIT 24.5 % (37.0-47.0); HEMOGLOBIN 8.4 gm/dL (12.0-15.0); MCH 30.7 pg (26.0-34.0); MCHC 34.3 g/dL (28.0-37.0); MCV 89.4 fL (80.0-100.0); RBC 2.74 mil/uL (4.20-5.00); RDW 14.5 % (10.5-14.5); WBC 6.5 thou/uL (4.0-11.0)
[2018-03-19 06:25] LABS: CALCIUM 8.7 mg/dL (8.5-10.1); CREATININE 0.6 mg/dL (0.6-1.0); MAGNESIUM 1.7 mg/dL (1.8-2.4); POTASSIUM 4.1 mmol/L (3.5-5.1)
[2018-03-19 07:30] VITALS: BP 154/75
[2018-03-19] MEDS ORDERED: LO-DOSE ASPIRIN81 M1 PO (11:40)
[2018-03-19] MEDS ORDERED: MIRALAX17 GM PO (11:40)
[2018-03-19] MEDS ORDERED: IRON325 PO (11:45)
[2018-03-19] MEDS ORDERED: LIPITOR 20 MG T20 M1 PO (11:50)
== END 2018-03-19 14:18 | DRG 480 ==
LOC: ER 13:37 → EROBS 15:34 → 4N 15:34 → 4E 03-17 16:12
PROVIDERS: Internal Medicine; Nurse Practitioner; Orthopaedic Surgery; Physician Assistant
PROC: 0QS734Z Reposition Left Upper Femur with Internal Fixation Device, Percutaneous Approach (ICD-10-PCS; principal; 2018-03-15)
PROC: 30233N1 Transfusion of Nonautologous Red Blood Cells into Peripheral Vein, Percutaneous Approach (ICD-10-PCS; principal; 2018-03-15)
DX: S72.142A Displaced intertrochanteric fracture of left femur, initial encounter for closed fracture (principal); E43 Unspecified severe protein-calorie malnutrition; D62 Acute posthemorrhagic anemia; E11.9 Type 2 diabetes mellitus without complications; F03.90 Unspecified dementia, unspecified severity, without behavioral disturbance, psychotic disturbance, mood disturbance, and anxiety; F41.9 Anxiety disorder, unspecified; F32.9 Major depressive disorder, single episode, unspecified; E78.5 Hyperlipidemia, unspecified; M81.0 Age-related osteoporosis without current pathological fracture; Z66 Do not resuscitate; I95.9 Hypotension, unspecified; R09.02 Hypoxemia; S40.019A Contusion of unspecified shoulder, initial encounter; E03.9 Hypothyroidism, unspecified; Z88.1 Allergy status to other antibiotic agents; Z88.2 Allergy status to sulfonamides; Z88.8 Allergy status to other drugs, medicaments and biological substances; Z86.73 Personal history of transient ischemic attack (TIA), and cerebral infarction without residual deficits; W05.0XXA Fall from non-moving wheelchair, initial encounter; Y93.89 Activity, other specified; Y92.89 Other specified places as the place of occurrence of the external cause; Y99.8 Other external cause status; Z79.899 Other long term (current) drug therapy; Z68.24 Body mass index [BMI] 24.0-24.9, adult
CPT/HCPCS: 10084; 10091; 50010; 50101; 50386; 51412; 51538; 56524; 56526; 57092; 62110; 62900; 70005

== ENCOUNTER 2019-10-15 10:39 | Inpatient (IN) | payer OTHER, MEDICARE ==
[~2019-10-15] VITALS: Ht 172.7 cm; Wt 43.5 kg
[2019-10-15] VITALS (7 sets, daily range): BP systolic 105–147; BP diastolic 42–70
--- NOTE | ~2019-10-15 | O ---
[facility] [place] [address] OPERATIVE REPORT Name: MIESHA STILL Room #: 435-P [facility] IN M.R.#: [id number] Admission: 10/15/19 Attend Phys: Matti Hooker MD Discharge: Date of : [birth year] Report #: [id number] THIS REPORT FOR: //name// CC: [facility] Physician staff DATE OF SERVICE: 10/15/2019 PREOPERATIVE DIAGNOSIS: Right hip femoral neck fracture. POSTOPERATIVE DIAGNOSIS: Right hip femoral neck fracture. PROCEDURE: Right hip percutaneous screw fixation. SURGEON: Dr. Antonio Nation. ANESTHESIA: General. ESTIMATED BLOOD LOSS: Minimal. DRAINS: No drains. TOURNIQUETS: No tourniquets. COMPLICATIONS: No complications. DESCRIPTION OF PROCEDURE: The patient brought to the operating room where she was placed under general anesthesia. Once under adequate general anesthesia, she was placed on to the fracture table, the patient's right lower extremity was then placed into traction and a reduction was achieved of the fracture site. The right hip was then prepped and draped in sterile manner. Utilizing fluoroscopy for guidance, three 7.3 mm cannulated screws were placed from the lateral cortex into the head of the femur in an inverted triangle type fashion. Excellent fixation and alignment was achieved as verified under fluoroscopy. Wound was irrigated copiously and closed with 2-0 Vicryl in subcutaneous tissues and rebekah for the skin. The wound was dressed with Xeroform, 4 x 4s, and sterile soft compressive dressing was placed. There was no tourniquet. There were no complications. The patient went to the recovery room without incident. By: [id number] Antonio Nation MD /nt
[~2019-10-15 10:39] MED LIST changes: +COLACE100 MG PO; +IRON325 PO; +LISINOPRIL2.5 MG PO; +MIRALAX17 GM PO; +REMERON15 MG PO
[2019-10-15] MEDS ORDERED: VITAMIN D350000 UNIT PO (10:54)
[2019-10-15] MEDS ORDERED: VITAMINC500 PO (10:55)
[2019-10-15] MEDS ORDERED: TRAMADOL 50 MG50 MG PO (10:55)
[2019-10-15 11:15] LABS: RBC 3.85 mil/uL (4.20-5.00)
[2019-10-15 11:17] LABS: ABSOLUTE NEUTROPHILS 5.7 thou/uL (1.4-8.2); BASOPHILS 0.3 % (0.0-2.0); EOSINOPHILS 0.6 % (0.0-3.0); HEMATOCRIT 35.3 % (37.0-47.0); HEMOGLOBIN 11.8 gm/dL (12.0-15.0); LYMPHOCYTES 9.5 % (24.0-44.0); MCH 30.5 pg (26.0-34.0); MCHC 33.3 g/dL (28.0-37.0); MCV 91.7 fL (80.0-100.0); MONOCYTES 6.3 % (1.0-8.0); PLATELET COUNT 129 thou/uL (150-400); POLYS 83.3 % (36.0-66.0); RDW 13.8 % (10.5-14.5); WBC 6.8 thou/uL (4.0-11.0)
[2019-10-15 11:22] LABS: CALCIUM 10.7 mg/dL (8.5-10.1); CREATININE 1.1 mg/dL (0.6-1.0); POTASSIUM 3.9 mmol/L (3.5-5.1)
[2019-10-15 11:27] LABS: APTT 28.2 Seconds (24.5-32.8); INR 1.1; PROTIME 11.6 Seconds (9.3-11.4)
[2019-10-15 20:12] LABS: URINE BILIRUBIN NEGATIVE (Negative); URINE BLOOD TRACE (Negative); URINE CLARITY SL CLOUDY; URINE COLOR YELLOW; URINE GLUCOSE-RANDOM* NEGATIVE (Negative); URINE KETONES NEGATIVE (Negative); URINE PROTEIN (DIPSTICK) TRACE (Negative); URINE UROBILINOGEN 0.2 E.U./dl (0.2-1.0)
[2019-10-15 20:14] LABS: URINE LEUKOCYTES-REFLEX 2+ (Negative); URINE NITRITE-REFLEX POSITIVE (Negative)
[2019-10-15 20:18] LABS: BACTERIA-REFLEX >30 Many /HPF (None Seen); CASTS None Seen /LPF (None Seen); CRYSTALS None Seen /LPF (None Seen); SQUAMOUS 4-10 Moderate /LPF (0-3); URINE WBC-REFLEX >25 Many /HPF (0-5)
[2019-10-15 20:19] LABS: URINE RBC 0-2 Rare /HPF (0-2)
[2019-10-16 03:10] VITALS: BP 152/69
[2019-10-16 05:14] LABS: CALCIUM 9.7 mg/dL (8.5-10.1); CREATININE 0.8 mg/dL (0.6-1.0); MAGNESIUM 1.7 mg/dL (1.8-2.4); POTASSIUM 4.1 mmol/L (3.5-5.1)
[2019-10-16 07:22] LABS: ABSOLUTE NEUTROPHILS 4.9 thou/uL (1.4-8.2); BASOPHILS 0.4 % (0.0-2.0); EOSINOPHILS 2.8 % (0.0-3.0); HEMATOCRIT 32.5 % (37.0-47.0); HEMOGLOBIN 10.8 gm/dL (12.0-15.0); LYMPHOCYTES 13.6 % (24.0-44.0); MCH 30.7 pg (26.0-34.0); MCHC 33.1 g/dL (28.0-37.0); MCV 92.5 fL (80.0-100.0); PLATELET COUNT 108 thou/uL (150-400); POLYS 74.2 % (36.0-66.0); RBC 3.52 mil/uL (4.20-5.00); RDW 13.7 % (10.5-14.5); WBC 6.6 thou/uL (4.0-11.0)
[2019-10-16 08:00] VITALS: BP 149/56
[2019-10-16 12:27] VITALS: BP 156/62
[2019-10-16 12:30] VITALS: BP 156/62
[2019-10-16 12:33] VITALS: BP 139/56
[2019-10-16 19:03] VITALS: BP 136/66
[2019-10-17 02:52] VITALS: BP 149/66
[2019-10-17 07:24] VITALS: BP 124/45
[2019-10-17 07:28] VITALS: BP 136/48
[2019-10-17 15:03] VITALS: BP 115/55
[2019-10-17 19:25] VITALS: BP 139/61
[2019-10-18 04:10] VITALS: BP 153/68
[2019-10-18 05:35] LABS: HEMATOCRIT 20.6 % (37.0-47.0); MCHC 33.8 g/dL (28.0-37.0); MCV 91.5 fL (80.0-100.0); RBC 2.25 mil/uL (4.20-5.00); RDW 13.4 % (10.5-14.5); WBC 4.6 thou/uL (4.0-11.0)
[2019-10-18 05:45] LABS: CALCIUM 8.4 mg/dL (8.5-10.1); CREATININE 0.8 mg/dL (0.6-1.0); POTASSIUM 3.1 mmol/L (3.5-5.1)
[2019-10-18 07:35] VITALS: BP 125/48
[2019-10-18 09:39] VITALS: BP 125/48
[2019-10-18] MEDS ORDERED: XARELTO10 MG PO (13:31)
== END 2019-10-18 16:15 | DRG 480 ==
LOC: ER 10:39 → EROBS 13:41 → 4S 13:41
PROVIDERS: Emergency Medicine; Nurse Practitioner; ADMIT Hospitalist
PROC: 0QH634Z Insertion of Internal Fixation Device into Right Upper Femur, Percutaneous Approach (ICD-10-PCS; principal; 2019-10-15)
DX: S72.011A Unspecified intracapsular fracture of right femur, initial encounter for closed fracture (principal); N17.0 Acute kidney failure with tubular necrosis; N39.0 Urinary tract infection, site not specified; N17.8 Other acute kidney failure; F03.90 Unspecified dementia, unspecified severity, without behavioral disturbance, psychotic disturbance, mood disturbance, and anxiety; E11.9 Type 2 diabetes mellitus without complications; E03.9 Hypothyroidism, unspecified; F41.9 Anxiety disorder, unspecified; F32.9 Major depressive disorder, single episode, unspecified; E78.5 Hyperlipidemia, unspecified; M81.0 Age-related osteoporosis without current pathological fracture; E83.52 Hypercalcemia; Z66 Do not resuscitate; Z88.6 Allergy status to analgesic agent; Z88.1 Allergy status to other antibiotic agents; Z88.2 Allergy status to sulfonamides; Z88.8 Allergy status to other drugs, medicaments and biological substances; Z79.82 Long term (current) use of aspirin; Z79.899 Other long term (current) drug therapy; W05.0XXA Fall from non-moving wheelchair, initial encounter; Y93.89 Activity, other specified; Y92.89 Other specified places as the place of occurrence of the external cause; Y99.8 Other external cause status
CPT/HCPCS: 10195; 50010; 50101; 50386; 51412; 51538; 52304; 56524; 56526; 57092; 62110; 62900; 70005